=== PATIENT | female | born 1995 | race American Indian/Alaskan Native ===

== ENCOUNTER 2017-08-08 10:05 | Day surgery (SDC) | payer OTHER ==
[2017-04-08 22:07] VITALS: BMI 40.7
[2017-08-08] MEDS ORDERED: Midazolam 2 MG/2 ML VIAL ONE (11:22)
[2017-08-08] MEDS ORDERED: Propofol 10 mg/ml Inj (20 ML) ONE (11:22)
[2017-08-08] MEDS ORDERED: Lactated Ringer's 1,000 ML IV ONE (11:22)
[2017-08-08] MEDS ORDERED: cefOXitin IV 2 gm in Dextrose 2 GM/50 ML BAG IVPB ONE (11:22)
--- NOTE | 2017-08-08 11:49 | PCM.SURG1 ---
Surgeon's Initial Post Op Note - Surgeon's Notes Surgeon: dr borrego Inventory Audit Clerk: none Type of Anesthesia: General LMA Anesthesia Administered By: dr garcia Pre-Operative Diagnosis: 21 yr aub failed medical manahgement Operative Findings: see the op reort Post-Operative Diagnosis: same with end polyp Operation Performed: myasure/d&c, hystewrscopy Specimen/Specimens Removed: ecc. emc. polyp Estimated Blood Loss: EBL {In ML}: 30 Blood Products Given: N/A Drains Used: No Drains Post-Op Condition: Good Date of Surgery/Procedure: 08/08/17 Time of Surgery/Procedure: 11:35
[2017-08-08] MEDS ORDERED: HYDROmorphone 0.5 mg/0.5 ml ISec IVP PRN (11:57)
[2017-08-08] MEDS ORDERED: Lactated Ringer's 500 ML IV ONE (13:39)
[2017-08-08 14:19] VITALS: BP 112/66; PULSE 68; RESP 18; TEMP 97; O2SAT 100
--- NOTE | 2017-08-11 08:23 | OP ---
PROCEDURE DATE: 08/08/2017 PREOPERATIVE DIAGNOSIS: A 21-year-old 0, para 0, abnormal uterine bleeding, medical management.. POSTOPERATIVE DIAGNOSIS: A 21-year-old 0, para 0, abnormal uterine bleeding, and medical management. SURGEON: Marc Root MD [employer] SURGEON: None. TYPE OF ANESTHESIA: General anesthesia. PROCEDURE PERFORMED: MyoSure, D and C, cystoscopy, polyp. ESTIMATED BLOOD LOSS: 30 mL. DESCRIPTION OF PROCEDURE: After informed consent was obtained, the patient was brought to the operating room, placed on the table where general anesthesia was administered. She was prepped and draped in a normal sterile fashion. After that, examination of the uterus revealed to be 8 to 9 weeks . Anterior lip of the cervix was grasped with tenaculum. General polypoid tissue from all the salgado of the uterus, more likely on the lower uterine segment. Then, the MyoSure was used to scrap it down. After that, sharp curettage all over the uterus was done. The and tenaculum was taken off the anterior lip of the cervix. The patient tolerated the procedure, left the . Marc Root MD
== END 2017-08-08 15:18 | disposition home or self-care (01) ==
LOC: C.SDS 10:05
PROVIDERS: ATTEND Obstetrics & Gynecology
DX: N84.0 Polyp of corpus uteri (principal); N93.9 Abnormal uterine and vaginal bleeding, unspecified
CPT/HCPCS: 58558; 88305; J0694; J1100; J1170; J1885; J2250; J2405; J2704; J3010; J7120